=== PATIENT | female | born 1935 | race Caucasian/White ===

== ENCOUNTER → 2023-06-05 09:54 | Outpatient (REF) | payer OTHER, SELFPAY | LOC: DHCBC HW 09:54 | PROVIDERS: ATTENDING PHYSICIAN Internal Medicine Cardiovascular Disease; FAMILY PHYSICIAN Family Medicine | DX: I34.0 Nonrheumatic mitral (valve) insufficiency (principal) | CPT/HCPCS: 93306 ==

== ENCOUNTER → 2023-06-13 08:26 | Outpatient (REF) | payer OTHER, SELFPAY | LOC: RAD 08:26 | PROVIDERS: ATTENDING PHYSICIAN Physician Assistant; FAMILY PHYSICIAN Family Medicine | DX: K21.00 Gastro-esophageal reflux disease with esophagitis, without bleeding (principal) | CPT/HCPCS: 74221 ==

== ENCOUNTER 2023-08-03 08:26 | Emergency (ER) | payer OTHER, SELFPAY ==
[2023-08-03 08:46] VITALS: BP 147/78
--- NOTE | 2023-08-03 10:09 | ED.GENMED ---
History of Present Illness
<Zenaida Fisher PA-C - Last Filed: 08/03/23 17:18>
General
Chief Complaint: Eye Problems
Source: patient
Exam Limitations: none
Time Seen by Provider: 08/03/23 09:51
Nursing documentation reviewed up to this point in time: agreed with
Travel History
Have you had any contact with someone who has COVID-19?: No
Do you have any symptoms of coronavirus? Fever > 100 degrees, chills, cough, shortness of breath, sore throat, loss of taste or smell, muscle aches, or headache?: Yes
Symptoms:: see triage note
History of Present Illness
History of Present Illness:
Patient is a 88 year old female with history hypertension, hyperlipidemia presenting for evaluation of left eye symptoms. Patient states that she was diagnosed with periorbital cellulitis 07/20/23 and completed a 7-day course of Augmentin, along
with eyedrops. She was seen by her eye doctor, Dr. Garcia on 07/23/23 who told her that symptoms seem to be improved but she should return to the emergency department if any symptoms recurred. She states that last she started to have a
sore throat and pressure in her left ear. She was seen at an urgent care where she had a negative strep test. Sore throat and left ear pain has persisted. Last night�she states that her left eye became red again and she had significant purulent
drainage throughout the night. She came to the emergency department today for further evaluation.
Patient denies any associated fever, chills. She does endorse a mild frontal headache this morning which resolved after Tylenol. Patient denies any changes in her vision, double vision, or flashes/floaters. Patient denies any pain in left eye or
pain with eye movements.
Patient has no drug allergies.
Past History
<Zenaida Fishre PA-C - Last Filed: 08/03/23 17:18>
Past History
ED Past Medical History: COPD, GERD, HTN, Hypercholesterolemia and Other (Osteoarthritis, DJD)
ED Past Surgical History: Orthopedic
Social History
Tobacco: Former smoker (Quit 2001)
Alcohol: Former
Drug: None
Personal:
Living: with family
Employment: Retired
Family History
Family History: Other (Noncontributory)
Phy Exam
<Zenaida Fisher PA-C - Last Filed: 08/03/23 17:18>
Physical Exam
Physical Exam:
Vitals: Patient's vital signs are stable. Afebrile
General: Patient is well appearing, no acute distress. Nontoxic-appearing
Skin: Warm and dry, no rashes or lesions
Head: Normocephalic, atraumatic
Eyes: Injected conjunctiva of left eye sparing limbus, with purulent drainage. Very minimal lower lid erythema/edema. No proptosis. EOM intact. No pain with eye movements. No evidence of injected right conjunctiva. No erythema, edema of right
eye.
Ears: Left external auditory canal clear with visible TM and some fluid just posterior. Light reflex visualized. No erythema or bulging of TM. Right external auditory canal with some cerumen, no erythema or evidence of
Throat: Mild erythema of posterior pharynx without any notable tonsillar edema or exudates. Uvula midline. Protecting airway
Neck: Normal ROM, no cervical spine tenderness, no meningismus
Cardiac: Regular rate and rhythm, no murmurs.
Pulm: Normal respiratory effort, no wheezes, rales, rhonchi heard on exam.
Abdomen: No abdominal tenderness.
Extremities: No evidence of cyanosis or edema
Neuro: AAOx3. CN II-XII intact. No focal neurologic deficits.
Psychiatric: Normal affect.
Course
<Zenaida Fisher PA-C - Last Filed: 08/03/23 17:18>
Orders/Labs/Results
Orders:
Orders
08/03/23 10:54
Amoxicillin 875 mg/Clav 125 mg [Augmentin 875 mg/125 mg] 1 tablet PO NOW STA
Vital Signs
Initial and Last Documented VS:
Initial Vital Signs
Temp Pulse Resp BP Pulse Ox
98.3 F 75 16 147/78 96
08/03/23 08:46 08/03/23 08:46 08/03/23 08:46 08/03/23 08:46 08/03/23 08:46
Last Documented Vital Signs
Temp Pulse Resp BP Pulse Ox
98.3 F 75 16 147/78 96
08/03/23 08:46 08/03/23 08:46 08/03/23 08:46 08/03/23 08:46 08/03/23 08:46
Madanlt;Jaime Keller DO - Last Filed: 08/03/23 11:01>
Orders/Labs/Results
Orders:
Orders
08/03/23 10:54
Amoxicillin 875 mg/Clav 125 mg [Augmentin 875 mg/125 mg] 1 tablet PO NOW STA
Vital Signs
Initial and Last Documented VS:
Initial Vital Signs
Temp Pulse Resp BP Pulse Ox
98.3 F 75 16 147/78 96
08/03/23 08:46 08/03/23 08:46 08/03/23 08:46 08/03/23 08:46 08/03/23 08:46
Last Documented Vital Signs
Temp Pulse Resp BP Pulse Ox
98.3 F 75 16 147/78 96
08/03/23 08:46 08/03/23 08:46 08/03/23 08:46 08/03/23 08:46 08/03/23 08:46
<Zenaida Fisher PA-C - Last Filed: 08/03/23 17:18>
MDM/Problems Addressed
Differential Diagnosis Includes:
Not limited to: Bacterial conjunctivitis, viral conjunctivitis, allergic activated preseptal cellulitis, orbital cellulitis, sinusitis,
MDM/Problems Addressed:
Patient is a 88-year-old female presenting with recurrent left eye redness and drainage in setting of recently treated conjunctivitis and preseptal cellulitis. Patient completed 7-day course of Augmentin 500mg about 1 week ago. Symptoms resolved
initially. Patient had onset of sore throat, left ear fullness approximately 4 days ago with acute onset left eye redness and drainage last night. Instructed to come to the emergency department for further evaluation. Vital stable. Exam as
above. No evidence of bacterial pharyngitis or ear infection on exam. Left eye is injected with purulent drainage and very mild lower lid erythema/edema. No proptosis or pain with eye movements. EOMs intact. Right eye clear. No evidence of
orbital cellulitis today. No indication for CT imaging at this time. Patient is well-appearing, nontoxic.
This appears to be a bacterial conjunctivitis of left eye with possible mild developing preseptal cellulitis. Given symptoms did resolve with last course of antibiotics�do not feel there is a need to add for MRSA coverage at this time.. Will treat
with Augmentin 875 for 10 days and antibiotic eyedrops. Patient will follow-up with Optho later this week. Return precautions discussed at length. She is aware to return if any worsening or no improvement within the next 24 to 48 hours
Chronic conditions affecting care:
N/A
Acute Exacerbation and/or Progression of Chronic Illness:
N/A
<Zenaida Fisher PA-C - Last Filed: 08/03/23 17:18>
*Pulse Oximetry
Patient hypoxic: no
*EKG
Interpreted by ED Provider?: NA
*Dietary Director Interpretation
Rate: Dietary Director- N/A
*Critical Care Note
Total Time (30-74mins, 75-104mins- exclusive of procedures): Not Applicable
ED Attending Note
<Zenaida Fisher PA-C - Last Filed: 08/03/23 17:18>
-
Portions of this chart may have been created with voice recognition software.� Occasional wrong word or��sound alike� substitutions may have occurred due to the inherent limitations of voice recognition software.
<Jaime Keller, - Last Filed: 08/03/23 11:01>
ED Attending Note
Patient seen and examined by attending physician: Yes
I performed the substantive portion of visit, reviewed & personally made and approve the management plan that is documented in note by myself or ALLEN.: Yes
ED Attending Note:
I agree with Beatrice's note
88-year-old female presents complaining of left eye redness, discharge. Patient recently diagnosed with periorbital cellulitis and treated with Augmentin eyedrops. She has followed up with ophthalmology. Her symptoms improved with Augmentin and
drops. She completed the antibiotics about a week ago. However her symptoms have returned. No fever or chills. No pain with eye movement.
Vital signs normal
Left eye has moderate injection of the sclera and conjunctiva, minimal erythema of the lids. No significant periorbital swelling or erythema.
Reinitiate drops and oral antibiotics, Optho follow-up
Discharge Plan
Departure
Patient Disposition: Home (Routine Discharge)
Date of Disposition: 08/03/23
Time of Disposition: 10:58
Patient with high blood pressure during this ER visit?: Yes
Condition: Good
Covid-19: Not Applicable
Discharge Problem:
Preseptal cellulitis of left eye, Bacterial conjunctivitis of left eye
Instructions: Conjunctivitis ([facility]) ED, BLOOD PRESSURE, Periorbital Cellulitis
Prescriptions:
New
amoxicillin-pot clavulanate 875-125 mg tablet
1 tab PO BID 10 Days Qty: 20 0RF
polymyxin B sulf-trimethoprim 10,000 unit- 1 mg/mL drops
1 - 2 drp ophthalmic (eye) QID 7 Days Qty: 10 0RF
Rx Instructions:
in affected eye
No Action
omeprazole 20 MG capsule,delayed release(DR/EC)
20 mg PO DAILY
tramadol 50 MG tablet
50 mg PO HS
valacyclovir 500 MG tablet
500 mg PO DAILY
cetirizine 10 MG tablet
10 mg PO DAILY@1200
acetaminophen [Tylenol Arthritis Pain] 650 MG tablet extended release
650 mg PO BID
albuterol sulfate 1 PUFF HFA aerosol inhaler
2 puff inhalation R Q4HPRN PRN (Reason: sob)
fluticasone propionate 1 SPRAY spray,suspension
2 spray intranasal DAILYPRN PRN (Reason: alleriges)
rosuvastatin 10 MG tablet
10 mg PO HS
Spiriva with HandiHaler 18 MCG capsule, w/inhalation device
1 cap IH R DAILY
azithromycin 250 mg Tablet
0 mg PO .COMPLEX
Patient Comments:
patient started on 05/29/22
Rx Instructions:
For 250 mg dose pack: take 500 mg today (day 1), then 250 mg for 4 days (days 2-5)
tramadol 50 mg Tablet
50 mg PO DAILYPRN PRN (Reason: moderate pains)
Patient Comments:
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
hydrochlorothiazide 25 mg Tablet
25 mg PO DAILY
levothyroxine [Synthroid] 112 mcg Tablet
112 mcg PO DAILY
amoxicillin-pot clavulanate 875-125 mg tablet
1 tab PO [id number]
Patient Comments:
patient started on 05/29/22 #14
[place] Nasal Mist 0.65 % Aerosol,[place]
2 spray INTRANASAL DAILY
Visbiome 112.5 billion cell Capsule
1 cap PO DAILY
melatonin 10 mg Tablet
10 mg PO HS
prednisone 10 MG tablet
20 mg PO [id number]
Patient Comments:
patient started on 05/29/22 #10
hydrocortisone [Preparation H Hydrocortisone] 1 % cream
1 applic topical BID PRN (Reason: skin irritation) Qty: 28.4 0RF
Referrals:
Fe Segovia MD [Family Provider] - Follow up in 5-7 days
Britney Arboleda MD [Active] - Follow up in 2-3 days
Activity Restrictions/Additional Instructions:
- Return to the emergency department with any high fevers, worsening in swelling, redness of left eye, pain in left eye, changes in vision, severe headache, severe neck pain, difficulty swallowing/breathing, worsening in current symptoms, or any
other concerns
-As discussed�you should use the eyedrops in the affected eye 4 times a day for the next 7 days. If symptoms start appearing in right eye you should start using drops in right eye, as well. A prescription has been sent for an antibiotic to the
pharmacy. You should take this twice a day for the next 10 days. Continue to use Flonase, Zyrtec, humidifier as needed.
-As discussed�it is extremely important to monitor your symptoms closely and return with any worsening or failure to improve in the next 48 hours. You should follow-up with your eye doctor in the next 2 to 3 days to ensure symptoms are improving.
Interventions
Interventions:
*Risk Screen - Suicide Last Done: 08/03/23 10:18
*General Assessment Last Done: 08/03/23 08:46
*Neglect/Abuse Screening Last Done: 08/03/23 10:18
ED- Fall Risk Assessment Last Done: 08/03/23 10:18
*ED COVID-19 Vaccine History Last Done: 08/03/23 08:46
*Nursing Disposition Last Done: 08/03/23 11:19
Discharge Date and Time
Discharge Date/Time: 08/03/23 11:20
Print Language: MALTESE
[2023-08-03] MEDS: AUGMENTIN 875 MG/125 MG 1 TABLET PO (11:13)
--- NOTE | 2023-08-03 11:18 | EDRN ---
Reviewed discharge instructions with patient. Verbalized understanding. Ambulated with steady gait to the lobby.
== END 2023-08-03 11:20 | disposition home or self-care (01) ==
LOC: EMR 08:26
PROVIDERS: EMERGENCY PHYSICIAN Emergency Medicine; FAMILY PHYSICIAN Family Medicine
DX: L03.213 Periorbital cellulitis (principal); H10.89 Other conjunctivitis; I10 Essential (primary) hypertension; E78.00 Pure hypercholesterolemia, unspecified; J44.9 Chronic obstructive pulmonary disease, unspecified; K21.9 Gastro-esophageal reflux disease without esophagitis; M19.90 Unspecified osteoarthritis, unspecified site; Z87.891 Personal history of nicotine dependence
CPT/HCPCS: 99282

== ENCOUNTER 2023-10-19 08:18 | Inpatient (IN) | payer OTHER, SELFPAY ==
[2023-10-19] VITALS (26 sets, daily range): BP systolic 0–147; BP diastolic 41–80; BMI 29.7
[2023-10-19 05:16] LABS: % Basophils 0.3 % (0-2); % Eosinophils 0.6 % (0-6); % Immature Granulocytes 0.4 % (0-0.5); % Lymphocytes 7.9 % (20.5-51.1); % Monocytes 9.3 % (1.7-9.3); % Neutrophils 81.5 % (42.2-75.2); Absolute Basophils 0.1 10^3/uL (0-0.2); Absolute Eosinophils 0.1 10^3/uL (0-0.7); Absolute Immature Granulocytes 0.1 10^3/uL (0-0.05); Absolute Lymphocytes 1.2 10^3/uL (1.2-3.4); Absolute Monocytes 1.4 10^3/uL (0.1-0.6); Absolute Neutrophils 12.1 10^3/uL (1.4-6.5); Hematocrit 34.9 % (37.0-47.0); Hemoglobin 12.3 g/dL (12.0-16.0); Mean Corp Hgb Conc. 35.2 g/dL (33.0-37.0); Mean Corpuscular Hgb 32.5 pg (27.0-31.0); Mean Corpuscular Volume 92.3 fL (81.0-99.0); Nucleated Red Blood Cells % 0 %; Platelet Count 274 10^3/uL (130-400); Red Blood Cell Count 3.78 10^6/uL (4.20-5.40); Red Cell Dist. Width 13.5 % (11.5-14.5); White Blood Cell Count 14.9 10^3/uL (4.8-10.8)
[2023-10-19 05:33] LABS: ALT (SGPT) 19 U/L (0-35); AST (SGOT) 32 U/L (14-36); Albumin 4.1 g/dl (3.5-5.0); Alkaline Phosphatase 48 U/L (38-126); Blood Urea Nitrogen 18 mg/dl (7-17); Calcium 9.6 mg/dl (8.4-10.2); Carbon Dioxide 25 mmol/L (22-30); Chloride 97 mmol/L (98-107); Estimated Creatinine Clearance 51 ml/min; Glucose 118 mg/dl (70-99); Potassium 4.5 mmol/L (3.5-5.1); Sodium 128 mmol/L (135-145); Total Protein 6.5 g/dl (6.3-8.2); eGFR > 60.00
[2023-10-19 05:43] LABS: Troponin I < 0.012 ng/ml
[2023-10-19 06:05] LABS: Lipase 47 U/L (23-300)
--- NOTE | 2023-10-19 06:23 | ED.GENMED ---
History of Present Illness
General
Chief Complaint: Cardiac Symptoms
Source: patient
Exam Limitations: none
Time Seen by Provider: 10/19/23 04:54
History of Present Illness
History of Present Illness:
88-year-old female presents with epigastric pain that began about 2 days ago. States it radiates around to her sides and toward her back at times. Symptoms have been constant. She was given nitroglycerin and aspirin prior to arrival. She denies
shortness of breath. She has no history of coronary disease. No vomiting.
Past History
Past History
ED Past Medical History: COPD, GERD, HTN, Hypercholesterolemia and Other (Osteoarthritis, DJD)
ED Past Surgical History: Orthopedic
Social History
Tobacco: Former smoker (Quit 2001)
Alcohol: Former
Drug: None
Personal:
Living: with family
Employment: Retired
Family History
Family History: Other (Noncontributory)
Phy Exam
Physical Exam
Physical Exam:
CONSTITUTIONAL Patient alert and oriented to person, place and time. Well-appearing. Vital signs reviewed.
HEAD atraumatic, normocephalic.
EYES eyelids normal to inspection, Extraocular muscles intact, Conjunctiva normal, Sclera normal.
NECK normal range of motion, Trachea midline, no jugular venous distention.
RESPIRATORY CHEST No respiratory distress noted, Chest expansion equal, Bilateral breath sounds clear.
CARDIOVASCULAR regular rate and rhythm, Heart sounds normal.
ABDOMEN moderate epigastric tenderness, Bowel sounds normal. No distention.
BACK normal inspection, no obvious deformities
UPPER EXTREMITY range of motion normal, Motor strength normal, no cyanosis, no edema.
LOWER EXTREMITY range of motion normal, Motor strength normal, no cyanosis, no edema.
NEURO Speech normal, No focal motor deficits, [place] coma scale 15, Memory normal, Cranial Nerves intact to screening exam.
SKIN skin warm, dry, and normal in color.
PSYCHIATRIC patient oriented to person place and time, Normal affect.
Course
Orders/Labs/Results
Orders:
Orders
10/19/23 04:49
Electrocardiogram (*1) Urgent
Reason for Study: Chest Pain
Cardiac Monitoring- Treatment ONCE
EKG- Treatment ONCE
IV Insert/Care/Rem.- Treatment PRN
O2 Therapy [RESP] Urgent
Titrate/Wean O2 to maintain O2 sat greater than (%): 90
Special Instructions: Maintain sats >/=90%
Pulse Ox/spot Check [RESP] Urgent
Quantity: 1
Special Instructions: ON ROOM AIR
10/19/23 04:54
Complete Blood Count/With Diff Urgent
Comprehensive Metabolic Panel Urgent
Lipase Urgent
Comment: ADDED
Troponin I Urgent
10/19/23 05:15
CT Abd/Pel (IV only)-DH only Urgent
Comment:
Reason For Exam: epigastric pain to back
10/19/23 05:48
Add On- LAB Urgent
Tests Added?: lipase
Abnormal Lab Results
10/19/23
04:54
WBC 14.9 H 10^3/uL
(4.8-10.8)
RBC 3.78 L 10^6/uL
(4.20-5.40)
Hct 34.9 L %
(37.0-47.0)
MCH 32.5 H pg
(27.0-31.0)
Abs Immat Gran (auto) 0.1 H 10^3/uL
(0-0.05)
Absolute Neuts (auto) 12.1 H 10^3/uL
(1.4-6.5)
Absolute Monos (auto) 1.4 H 10^3/uL
(0.1-0.6)
Neutrophils % 81.5 H %
(42.2-75.2)
Lymphocytes % 7.9 L %
(20.5-51.1)
Sodium 128 L mmol/L
(135-145)
Chloride 97 L mmol/L
(98-107)
BUN 18 H mg/dl
(7-17)
Glucose 118 H mg/dl
(70-99)
10/19/23 04:54
10/19/23 04:54
Vital Signs
Initial and Last Documented VS:
Initial Vital Signs
Pulse Resp
68 18
10/19/23 04:48 10/19/23 04:48
Last Documented Vital Signs
Temp Pulse Resp BP Pulse Ox
98.5 F 65 18 124/53 95
10/19/23 04:50 10/19/23 04:50 10/19/23 04:50 10/19/23 04:50 10/19/23 04:51
MDM/Problems Addressed
MDM/Problems Addressed:
Epigastric abdominal pain, mild hyponatremia, leukocytosis
*Radiology
Radiology exam reviewed: preliminary read by ED provider (No free air, distended gallbladder)
*Pulse Oximetry
Patient hypoxic: no
*EKG
Interpreted by ED Provider?: Yes
Interpretation: abnormal
Rate: normal
Rhythm: sinus
[place]: normal axis
Interval: normal interval
Ischemia: non-specific ST changes
*Clinical Biochemical Geneticist Interpretation
Rate: normal
Interpretation: normal
Rhythm: sinus
*Critical Care Note
Total Time (30-74mins, 75-104mins- exclusive of procedures): Not Applicable
Data Reviewed
Source: patient
Prescriptions/Medications Considered But Not Given:
Consider nitroglycerin but abdomen is tender and do not suspect ACS
Patient Management
Discussion with other providers: Hospitalist and Lounge Car Attendant (Case discussed with surgery)
Escalation/DeEscalation of care consider admission/obs:
88-year-old female with 2 days of abdominal pain. Found to have leukocytosis. CT shows suspected acute cholecystitis with intact stone. IV antibiotics. Admit
ED Attending Note
-
Portions of this chart may have been created with voice recognition software.� Occasional wrong word or��sound alike� substitutions may have occurred due to the inherent limitations of voice recognition software.
Discharge Plan
Departure
Patient Disposition: Admit
Date of Disposition: 10/19/23
Time of Disposition: 06:52
Admit to: Med/Surg
Presentation/result/management discussed w/ accepting MD/DO: Hospitalist
Discharge Problem:
Acute cholecystitis
Prescriptions:
No Action
omeprazole 20 MG capsule,delayed release(DR/EC)
20 mg PO DAILY
tramadol 50 MG tablet
50 mg PO HS
valacyclovir 500 MG tablet
500 mg PO DAILY
cetirizine 10 MG tablet
10 mg PO DAILY@1200
acetaminophen [Tylenol Arthritis Pain] 650 MG tablet extended release
650 mg PO BID
albuterol sulfate 1 PUFF HFA aerosol inhaler
2 puff inhalation R Q4HPRN PRN (Reason: sob)
fluticasone propionate 1 SPRAY spray,suspension
2 spray intranasal DAILYPRN PRN (Reason: alleriges)
rosuvastatin 10 MG tablet
10 mg PO HS
Spiriva with HandiHaler 18 MCG capsule, w/inhalation device
1 cap IH R DAILY
azithromycin 250 mg Tablet
0 mg PO .COMPLEX
Patient Comments:
patient started on 05/29/22
Rx Instructions:
For 250 mg dose pack: take 500 mg today (day 1), then 250 mg for 4 days (days 2-5)
tramadol 50 mg Tablet
50 mg PO DAILYPRN PRN (Reason: moderate pains)
Patient Comments:
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
hydrochlorothiazide 25 mg Tablet
25 mg PO DAILY
levothyroxine [Synthroid] 112 mcg Tablet
112 mcg PO DAILY
amoxicillin-pot clavulanate 875-125 mg tablet
1 tab PO [id number]
Patient Comments:
patient started on 05/29/22 #14
[place] Nasal Mist 0.65 % Aerosol,[place]
2 spray INTRANASAL DAILY
Visbiome 112.5 billion cell Capsule
1 cap PO DAILY
melatonin 10 mg Tablet
10 mg PO HS
prednisone 10 MG tablet
20 mg PO [id number]
Patient Comments:
patient started on 05/29/22 #10
hydrocortisone [Preparation H Hydrocortisone] 1 % cream
1 applic topical BID PRN (Reason: skin irritation) Qty: 28.4 0RF
amoxicillin-pot clavulanate 875-125 mg tablet
1 tab PO BID 10 Days Qty: 20 0RF
polymyxin B sulf-trimethoprim 10,000 unit- 1 mg/mL drops
1 - 2 drp ophthalmic (eye) QID 7 Days Qty: 10 0RF
Rx Instructions:
in affected eye
Referrals:
Fe Segovia MD [Family Provider] -
Interventions
Interventions:
*Risk Screen - Suicide Last Done: 10/19/23 04:51
*General Assessment Last Done: 10/19/23 04:51
*Neglect/Abuse Screening Last Done: 10/19/23 04:51
ED- Fall Risk Assessment Last Done: 10/19/23 04:51
*ED COVID-19 Vaccine History Last Done: 10/19/23 04:51
ED- Pulmonary Assessment Last Done: 10/19/23 04:51
ED- Cardiac Assessment Last Done: 10/19/23 04:51
Discharge Date and Time
Print Language: PERSIAN
--- NOTE | 2023-10-19 07:38 | HPS.HSE ---
Family Physician
-
Family Physician: Fe Segovia
Chief Complaint
-
Epigastric pain/nausea
History of Present Illness
Patient is 88-year-old female with past medical history of essential hypertension, hyperlipidemia, GERD, hypothyroidism, history of diverticulitis, history of hemorrhoids, history of RSV, COPD, remote history of alcohol dependence, L4 compression
fracture, aortic valve insufficiency, history of left THR came to ER with new onset of epigastric pain that started approximately 2 days back. Pain is radiating to back at points waxing and waning in nature. No clear aggravating factors. Symptoms
persisted and patient presented to ER for further evaluation. Patient in the morning today also started having nausea but no episode of vomiting. No change in bowel habit except episode of constipation last week which was able to be resolved with
milk of mag. Patient denies of having frequent episodes of constipation. No associated fever.
Patient denies of having any ongoing cardiopulmonary or complaints.
Medical History
Past Medical History
Past Medical History: Reports Other
Additional Past Medical History:
essential hypertension, hyperlipidemia, GERD, hypothyroidism, history of diverticulitis, history of hemorrhoids, history of RSV, COPD, remote history of alcohol dependence, L4 compression fracture, aortic valve insufficiency, history of left THR
Past Surgical History: Reports Other
Social History
Tobacco: Non-smoker
Alcohol: Former (History of alcohol abuse, sober for many years)
Drug: None
Personal:
Living: With Family
Family History
Family History: Not pertinent
Allergies / Home Medications
Allergies reflects when Allergies were last updated in [facility].
Home Medications with original date entered in [facility]
Allergy/Medication List:
Allergies
Allergy/AdvReac Type Severity Reaction Status Date / Time
No Known Allergies Allergy Verified 08/03/23 08:50
Home Medications
omeprazole 20 mg capsule,delayed release 20 mg PO DAILY 07/11/09
valacyclovir 500 mg tablet 500 mg PO DAILY 10/03/18
acetaminophen 650 mg tablet,extended release (Tylenol Arthritis Pain) 650 mg PO BID 03/31/21
albuterol sulfate 90 mcg/actuation aerosol inhaler 2 puff inhalation R Q4HPRN PRN sob 03/31/21
fluticasone propionate 50 mcg/actuation nasal spray,suspension 2 spray intranasal DAILYPRN PRN alleriges 03/31/21
rosuvastatin 10 mg tablet 10 mg PO HS 03/31/21
tiotropium bromide 18 mcg capsule with inhalation device (Spiriva with HandiHaler) 1 cap IH R DAILY 03/31/21
Lactobac no.2-Bifidobac no.1-S. thermo 112.5 billion cell capsule (Visbiome) 1 cap PO DAILY 05/31/22
levothyroxine 112 mcg tablet (Synthroid) 112 mcg PO DAILY 05/31/22
melatonin 10 mg tablet 10 mg PO HS 05/31/22
tramadol 50 mg tablet 50 mg PO DAILYPRN PRN moderate pains 05/31/22
calcium carbonate 600 mg-vitamin D3 5 mcg (200 unit) tablet 1 tab PO DAILY 10/19/23
cetirizine 10 mg tablet (Zyrtec) 10 mg PO DAILY 10/19/23
famotidine 20 mg tablet (Pepcid) 20 mg PO DAILY 10/19/23
losartan 50 mg tablet 50 mg PO DAILY 10/19/23
multivitamin with minerals-folic acid 12 mcg chewable tablet (Centrum Adults) 1 tab PO DAILY 10/19/23
omega-3 fatty acids 1,000 mg PO DAILY 10/19/23
spironolactone 25 mg tablet 25 mg PO DAILY 10/19/23
vitamin B12 0.5 mg-folic acid 1 mg tablet 1 tab PO DAILY 10/19/23
Review of Systems
-
A 12 point ROS was completed and negative except as noted: Yes
Physical Exam
Vital Signs
Vital Signs
Temp Pulse Resp BP Pulse Ox
98.5 F 57 16 97/78 97
07/28/24 07:29 10/19/23 07:29 10/19/23 07:29 10/19/23 07:29 10/19/23 07:29
Physical Exam
General: No Apparent Distress
HEENT: No Oxygen
Respiratory: Clear
Cardiac: S1/S2 and Regular Rhythm; No Murmur or Rub
GI: Soft, Non Distended, Normal Bowel Sounds and Tender (Epigastric ); No Organomegaly
Rectal: Deferred by Provider
Musculoskeletal: No Cyanosis and No Edema
Skin: No Rash
Neuro: Awake, Alert, Oriented and Nonfocal/grossly intact
Laboratory Results
-
10/19/23 04:54
10/19/23 04:54
Laboratory Results
Total Bilirubin 1.0 mg/dl (0.2-1.3) 10/19/23 04:54
AST 32 U/L (14-36) 10/19/23 04:54
ALT 19 U/L (0-35) 10/19/23 04:54
Alkaline Phosphatase 48 U/L (38-126) 10/19/23 04:54
Troponin I < 0.012 ng/ml 10/19/23 04:54
Lipase 47 U/L (23-300) 10/19/23 04:54
Data Reviewed
-
Lab Data: Labs Reviewed by me, Discussed with Patient and Discussed with Family
Impression/Plan
-
CT a/p
Significant distended gallbladder with impacted 2 cm gallstone in the neck. Associated with circumferential gallbladder wall thickening and mild pericholecystic inflammation. Grade 1 anterolisthesis of L4/L5. Chronic L4 superior endplate
deformity.
1. Acute cholecystitis
Cholelithiasis with impacted gallstone in GB neck
Leukocytosis w/o fever
-Patient presented for epigastric pain with some nausea. No fever
-CT abdomen pelvis showing impacted 2 cm gallstone in the neck.
-Leukocytosis no fever. LFT normal.
-General surgery consulted by ER physician, await for further recommendation
-Maintain n.p.o./IV fluids/pain medication
-Cover with IV Unasyn for now
2. Acute hyponatremia
-Asymptomatic
-Presuming euvolemic with pain related ADH excess
-Urine sodium/osmolality pending
-Will need to maintained on IVF as NPO for sx
3. Essential HTN
-Reviewed blood pressure reading very soft, blood pressure improved
-Resume home medication from tomorrow
4. history of RSV
COPD
-No pulmonary complaints. Follows with Dr. Greenwood
-Maintain on as needed inhaler therapy
hyperlipidemia
GERD
hypothyroidism
history of diverticulitis
history of hemorrhoids
remote history of alcohol dependence
L4 compression fracture
aortic valve insufficiency
history of left THR
DVT PPX - scd
Full code
Total time spent : 77 mins
I personally saw and examined the patient.
I have reviewed all diagnostic interpretations and treatment plans as written.
Time includes patient management by me, time spent at the patients bedside, time to review lab and imaging results, discussing patient care, documentation in the medical record, and time spent with the family or caregiver and discussing care plan
with RN/Consultants.
--- NOTE | 2023-10-19 09:15 | CON.GS ---
Addendum entered and electronically signed by Shun Hood MD 10/19/23 12:48:
Correction, patient has received a dose of Unasyn preoperatively
Addendum entered and electronically signed by Shun Hood MD 10/19/23 12:47:
Patient seen and examined.
Patient is an 88 yo F with a pertinent PMH of GERD, HTN, HLD, COPD (no home O2), diverticulitis, and aortic valve insufficiency who presents with 2 days of epigastric abdominal pain. She denies any prior attacks. Associated nausea, but no
vomiting. She denies any jaundice, pale stools, or tea colored urine.
Gen: NAD
Abd: soft, obese, tender to palpation in RUQ, positive Ruvalcaba's sign, ND, non-peritoneal
Labs and imaging were reviewed
Patient is an 88yo F p/w acute cholecystitis
The natural history and pathophysiology of cholecystitis was discussed. Anatomy was reviewed. Given her persistent pain recommend cholecystectomy. Plan for a laparoscopic cholecystectomy with possible cholangiogram. The procedure itself, as well
as the risks, benefits, and alternatives was discussed. Specifically, we discussed the risks of bleeding, infection, injury to surrounding structures (bowel, bile ducts), CBD injury, need for open procedure. Typical postprocedural recovery was
discussed. All questions answered. Consent signed.
-- Laparoscopic cholecystectomy with possible cholangiogram
-- NPO, IVF
-- Antibiotics: Zosyn
-- Admit to hospitalist postoperative
Original Note:
Consultation
-
Date/Time Consultation Requested: 10/19/2023, 07:38
Date/Time Consultation Performed: , 10:00
Requesting Provider: José Luis Juares MD
Performing Provider: Shun Hood MD
Reason for Consultation: cholecystitis
Medical History
-
Chief Complaint: epigastric pain
History of Present Illness:
88-year-old female, with a history of diverticulitis COPD and aortic valve insufficiency, presents to the emergency department this morning due to epigastric pain. The patient states that started 2 days ago and was waxing and waning in nature.
This morning it was quite severe and she called 911 and was brought to the hospital via ambulance. She states that she had some nausea but no vomiting. The pain itself radiates to the back. She had not noticed any worsening pain after eating.
She has never had an attack like this before. She denies any pale stools, Coca-Cola colored urine, or jaundice. She has no change in bowel habits except for last week she had an episode of constipation.
In the ER the patient's vital signs are normal. She is afebrile. Her WBC is 14.9. CT of the abdomen and pelvis shows cholelithiasis with possible acute cholecystitis. No overt CT evidence for biliary dilation or choledocholithiasis. We have
been consulted for further surgical recommendation.
Past Medical History
Past Medical History: Other (essential hypertension, hyperlipidemia, GERD, hypothyroidism, history of diverticulitis, history of hemorrhoids, history of RSV, COPD, remote history of alcohol dependence, L4 compression fracture, aortic valve
insufficiency, history of left THR)
Past Surgical History: Other (hip and knee replacement)
Social History
Tobacco: Non-Smoker
Alcohol: Former
Drug: None
Personal:
Employment: Employed
Family History
Family History: Reviewed & Not Pertinent
Allergies / Home Medications
Allergy/AdvReac Type Severity Reaction Status Date / Time
No Known Allergies Allergy Verified 08/03/23 08:50
�Medication �Instructions �Recorded �Confirmed �Type
omeprazole 20 mg capsule,delayed 20 mg PO DAILY 07/11/09 10/19/23 History
release
valacyclovir 500 mg tablet 500 mg PO DAILY 10/03/18 10/19/23 History
acetaminophen 650 mg 650 mg PO BID 03/31/21 10/19/23 History
tablet,extended release (Tylenol
Arthritis Pain)
albuterol sulfate 90 mcg/actuation 2 puff inhalation R Q4HPRN PRN sob 03/31/21 10/19/23 History
aerosol inhaler
fluticasone propionate 50 2 spray intranasal DAILYPRN PRN 03/31/21 10/19/23 History
mcg/actuation nasal alleriges
spray,suspension
rosuvastatin 10 mg tablet 10 mg PO HS 03/31/21 10/19/23 History
tiotropium bromide 18 mcg capsule 1 cap IH R DAILY 03/31/21 10/19/23 History
with inhalation device (Spiriva
with HandiHaler)
Lactobac no.2-Bifidobac no.1-S. 1 cap PO DAILY 05/31/22 10/19/23 History
thermo 112.5 billion cell capsule
(Visbiome)
levothyroxine 112 mcg tablet 112 mcg PO DAILY 05/31/22 10/19/23 History
(Synthroid)
melatonin 10 mg tablet 10 mg PO HS 05/31/22 10/19/23 History
tramadol 50 mg tablet 50 mg PO DAILYPRN PRN moderate 05/31/22 10/19/23 History
pains
calcium carbonate 600 mg-vitamin 1 tab PO DAILY 10/19/23 10/19/23 History
D3 5 mcg (200 unit) tablet
cetirizine 10 mg tablet (Zyrtec) 10 mg PO DAILY 10/19/23 10/19/23 History
famotidine 20 mg tablet (Pepcid) 20 mg PO DAILY 10/19/23 10/19/23 History
losartan 50 mg tablet 50 mg PO DAILY 10/19/23 10/19/23 History
multivitamin with minerals-folic 1 tab PO DAILY 10/19/23 10/19/23 History
acid 12 mcg chewable tablet
(Centrum Adults)
omega-3 fatty acids 1,000 mg PO DAILY 10/19/23 10/19/23 History
spironolactone 25 mg tablet 25 mg PO DAILY 10/19/23 10/19/23 History
vitamin B12 0.5 mg-folic acid 1 mg 1 tab PO DAILY 10/19/23 10/19/23 History
tablet
Review of Systems
-
History Source: Patient
All other systems: Negative unless noted
Abdomen/GI: Abdominal Pain (epigastric) and Nausea
A 10 point review of systems was completed, and was negative except as per HPI.
Physical Exam
Vital Signs
Temp Pulse Resp BP Pulse Ox
97.5 F 60 20 137/63 97
10/19/23 08:34 10/19/23 08:34 10/19/23 08:34 10/19/23 08:34 10/19/23 08:34
10/18/23 10/19/23 10/20/23
06:59 06:59 06:59
Actual Weight 71.2 kg
Body Mass Index (BMI) 29.7
Lab Results
10/19/23 04:54
10/19/23 04:54
WBC 14.9 10^3/uL (4.8-10.8) H 10/19/23 04:54
Hgb 12.3 g/dL (12.0-16.0) 10/19/23 04:54
Hct 34.9 % (37.0-47.0) L 10/19/23 04:54
Plt Count 274 10^3/uL (130-400) 10/19/23 04:54
Abs Immat Gran (auto) 0.1 10^3/uL (0-0.05) H 10/19/23 04:54
Neutrophils % 81.5 % (42.2-75.2) H 10/19/23 04:54
Physical Exam
General: Well Developed, Well Nourished and No Apparent Distress
GI: Soft, Non Distended and Tender (epigastric)
Skin: Warm and Dry
Neuro: AO x 3
Data Reviewed
-
CT Scan: Image Personally Visualized and interpreted, Report Reviewed by me and Discussed with Patient
Labs: Labs Reviewed by me, Discussed with Physician and Discussed with Patient
Old Records: Reviewed
Assessment / Plan
-
Assessment: 88-year-old female with epigastric pain for 2 days found to have cholelithiasis with impacted gallstone in the gallbladder neck
Plan:
-OR today for cholecystectomy
-IV antibiotics per primary team
-Remain n.p.o.
-Pain control
-Discussed above with patient who is in agreement
[2023-10-19] MEDS: UNASYN IV ×4 (09:41→21:03)
--- NOTE | 2023-10-19 11:12 | EDRN ---
the OR called and this RN gave verbal report
[2023-10-19 11:24] LABS: APTT 34.1 Sec (23.4-35.0)
--- NOTE | 2023-10-19 12:44 | W.SUR.PREOP ---
Pre-Operative Surgical Note
-
I have examined this patient prior to the performance of the scheduled procedure.
The patient's condition is unchanged from the time of the current History and
Physical and the patient is able to undergo the scheduled procedure.
--- NOTE | 2023-10-19 15:53 | W.IMMPOSTOP ---
Addendum entered and electronically signed by Shun Hood MD 10/19/23 22:53:
[facility]#[id number]
Original Note:
Surgical Immed Post Op Note
-
Primary Surgeon: Sana
Assisting Surgeon: None
Pre-op Diagnosis: Acute cholecystitis
Post-op Diagnosis: Acute on chronic cholecystitis
Procedure Performed: Laparoscopic cholecystectomy with IOC
Anesthesia Type: General
Specimen / Cultures:
1. Gallbladder
Estimated Blood Loss: 7 cc
Complications: None
Operative Findings:
1. Severely thickened wall and distended GB, large impacted stone at neck
2. IOC with anatomy confirmed and no filling defects
3. Artery clipped, duct initially taken with stapler and tear through on posterior wall, sump ligated with endoloop
4. 10 Fr flat drain into operative field
[2023-10-19] MEDS: LR 1000 IV (16:00)
[2023-10-19] MEDS: TYLENOL PO (17:53)
[2023-10-19] MEDS: SPIRIVA RESPIMAT 2.5 MCG INH (18:05)
[2023-10-19] MEDS: VALTREX 500 MG PO (18:35)
--- NOTE | 2023-10-19 18:49 | PTCARENOTE ---
Pt arrived from PACU at aprox 1720. Pt S/P lap jojo. Right BAMBI drain site CDI with minimal drainage. 3 laps sites glued and MIKI. Vitals stable. LR at 75 hr hanging. Pt ordered dinner and walked to bathroom assisted with walker and was able to
void. Admission and assessment completed. Pt advised to ring for assistance and not to get OOB without help. Call roman within reach. at bedside.
[2023-10-19] MEDS: TYLENOL 650 MG PO (19:52)
[2023-10-19] MEDS: CRESTOR 10 MG PO (21:03)
[2023-10-19] MEDS: DILAUDID 0.5 MG IV (21:44)
[2023-10-19 21:58] LABS: Osmolality Urine 654 mOsm/kg (300-900)
[2023-10-19 22:10] LABS: Urine Sodium 42 mmol/L (30-90)
[2023-10-20] MEDS: TYLENOL PO (00:04)
[2023-10-20] MEDS: DILAUDID 0.5 MG IV ×2 (01:35→05:23)
--- NOTE | 2023-10-20 01:42 | PTCARENOTE ---
lap sites intact- pt ambulates to br and voids without difficulty- prn kumari meds x2- see mar- ax3- bp wnl afebrile
[2023-10-20] MEDS: LR 1000 IV (03:12)
[2023-10-20] MEDS: UNASYN IV ×2 (03:12→11:18)
[2023-10-20] MEDS: TYLENOL 650 MG PO ×3 (03:45→11:17)
[2023-10-20 03:46] VITALS: BP 137/72
[2023-10-20] MEDS: SYNTHROID 112 MCG PO (05:23)
[2023-10-20 06:17] LABS: Hematocrit 34.1 % (37.0-47.0); Hemoglobin 11.7 g/dL (12.0-16.0); Mean Corp Hgb Conc. 34.3 g/dL (33.0-37.0); Mean Corpuscular Hgb 32.1 pg (27.0-31.0); Mean Corpuscular Volume 93.7 fL (81.0-99.0); Mean Platelet Volume 9.8 fL (7.4-10.4); Platelet Count 211 10^3/uL (130-400); Red Blood Cell Count 3.64 10^6/uL (4.20-5.40); Red Cell Dist. Width 13.5 % (11.5-14.5); White Blood Cell Count 15.6 10^3/uL (4.8-10.8)
[2023-10-20 06:32] LABS: AST (SGOT) 68 U/L (14-36); Albumin 3.5 g/dl (3.5-5.0); Blood Urea Nitrogen 18 mg/dl (7-17); Calcium 8.5 mg/dl (8.4-10.2); Carbon Dioxide 25 mmol/L (22-30); Estimated Creatinine Clearance 51 ml/min; Glucose 107 mg/dl (70-99); Total Bilirubin 0.5 mg/dl (0.2-1.3); Total Protein 5.8 g/dl (6.3-8.2); eGFR > 60.00
[2023-10-20 06:40] LABS: ALT (SGPT) 65 U/L (0-35); Alkaline Phosphatase 53 U/L (38-126); Chloride 98 mmol/L (98-107); Sodium 129 mmol/L (135-145)
[2023-10-20 07:20] VITALS: BP 125/58
[2023-10-20] MEDS: SPIRIVA RESPIMAT 2.5 MCG 2 PUFF INH (07:28)
[2023-10-20] MEDS: VALTREX 500 MG PO (08:18)
[2023-10-20] MEDS: PROTONIX 40 MG PO (08:18)
--- NOTE | 2023-10-20 08:26 | W.PN.GS2 ---
Today's Communication / Plan
-
Dispo planning
Assessment / Plan
-
This is an 88-year-old female postoperative day 1 from a laparoscopic cholecystectomy with cholangiogram.
Continue BAMBI to bulb suction, begin drain teaching.
Anticipate discharge home later today with drain in and follow-up in [address] Hood.
Discharge instructions updated.
Time Spent
Total Time Spent with Patient (in minutes): 20
Subjective Data
-
Date of Service: October 20, 2023
Interval Events:
No acute events overnight. Slept well. Pain Controlled. Denies Nausea/Vomiting, +bowel function. Tolerating diet.
Objective Data
-
Intake and Output
10/19/23 10/20/23 10/21/23
06:59 06:59 06:59
Intake Total 1430 / 1430
Output Total 20 / 20
Balance 1410 / 1410
Intake:
Oral fluids 480 / 480
IV fluids (Total) 950 / 950
LR 50 / 50
IV piggybacks 0 / 0
Output:
Drain Output (Total) 20 / 20
Right Middle Abdomen Eugene- 20 /
Awad A
Other:
Number of approximated LARGE 3
amounts of urine
Vital Signs
Temp Pulse Resp BP Pulse Ox
97.7 F 58 16 125/58 96
10/20/23 07:20 10/20/23 07:33 10/20/23 07:33 10/20/23 07:20 10/20/23 07:33
Lab Results
10/20/23 04:39
10/20/23 04:39
Calcium 8.5 mg/dl (8.4-10.2) 10/20/23 04:39
Total Bilirubin 0.5 mg/dl (0.2-1.3) 10/20/23 04:39
AST 68 U/L (14-36) H 10/20/23 04:39
ALT 65 U/L (0-35) H 10/20/23 04:39
Alkaline Phosphatase 53 U/L (38-126) 10/20/23 04:39
Total Protein 5.8 g/dl (6.3-8.2) L 10/20/23 04:39
Albumin 3.5 g/dl (3.5-5.0) 10/20/23 04:39
Physical Exam
-
GENERAL/NEURO: Awake, Alert, no distress
CHEST: Unlabored breathing on RA
ABDOMEN: Soft, Non-Tender, Non-Distended, incisions clean dry and intact. BAMBI with serosanguineous drainage.
[2023-10-20 11:05] VITALS: BP 126/52
[2023-10-20] MEDS: ALDACTONE 25 MG PO (11:56)
[2023-10-20] MEDS: COZAAR 50 MG PO (11:56)
--- NOTE | 2023-10-20 12:07 | CM ---
product line manager reviewed patient's chart and patient's lives with her spouse in a one story home with one steps to enter, patient is independent with adl's and uses a cane outside to ambulate, per physician patient is for discharge to home possibly
today. Patient would benefit from homecare, options reviewed and patient has selected [facility].
Pharmacy; [facility]
PCP: Fe Segovia
Plan; Home when stable with [facility].
--- NOTE | 2023-10-20 12:42 | VNURNOTE ---
Home Health Liaison met with patient at bedside to discuss [facility] nurse visits, schedule, purpose. Patient is agreeable and understands that visits at home will be 1-3 x per week to assess and teach medical management, BAMBI drain care. [facility] brochure
provided with contact information. Patient is aware that [facility] will contact them for start of care in 1-2 days after discharge from . [facility] referral completed in [facility].
--- NOTE | 2023-10-20 12:50 | W.PN.HOSP.TC ---
Today's Communication/Plan
-
BAMBI drain teaching
OP GS f/u in 1 week
cbc/bmp in 3-4 days via pcp
Assessment / Plan
Assessment / Plan
1. Acute cholecystitis
Cholelithiasis with impacted gallstone in GB neck
Leukocytosis w/o fever
-Patient presented for epigastric pain with some nausea. No fever
-CT abdomen pelvis showing impacted 2 cm gallstone in the neck.
-Leukocytosis no fever. LFT normal. DC antibiotics on discharge.
-Status post laparoscopic cholecystectomy with IOC.
-Operative findings severely thickened wall and distended gallbladder, large impacted stone in the neck. I received anatomy confirmed no filling defects. Patient to go home with BAMBI drain with outpatient surgery follow-up. Being ordered.
2. Acute hyponatremia
-Asymptomatic
-Presuming euvolemic with pain related ADH excess
-Sodium slowly improving Repeat BMP later in the week. History of hyponatremia in the past as low as 126.
3. Essential HTN
-Reviewed blood pressure reading very soft, blood pressure improved
-Resume home medication
4. history of RSV
COPD
-No pulmonary complaints. Follows with Dr. Greenwood
-Maintain on as needed inhaler therapy
hyperlipidemia
GERD
hypothyroidism
history of diverticulitis
history of hemorrhoids
remote history of alcohol dependence
L4 compression fracture
aortic valve insufficiency
history of left THR
DVT PPX - scd
Full code
More than 30 minutes spent in discharge including
Final examination of the patient
Summarizing hospital stay
Instructions for continuing care to all relevant caregivers
Preparation of discharge records, prescriptions, and referral forms
Total time spent (in minutes): 52
Anticipated Discharge: Today
Subjective/Interval History
-
Date of Service: October 20, 2023
tolerating diet
in good spirits
Objective Data
-
Labs:
Laboratory Results
10/20/23
04:39
WBC 15.6 H
Hgb 11.7 L
Hct 34.1 L
Plt Count 211 D
Sodium 129 L
Potassium 4.0
Chloride 98
Carbon Dioxide 25
BUN 18 H
Creatinine 0.7
Glucose 107 H
Calcium 8.5
Total Bilirubin 0.5
AST 68 H
ALT 65 H
Alkaline Phosphatase 53
Vital Signs:
Vital Signs
Temp Pulse Resp BP Pulse Ox
97.8 F 55 12 126/52 97
10/20/23 11:05 10/20/23 11:05 10/20/23 11:05 10/20/23 11:05 10/20/23 11:05
I&O
10/19/23 10/20/23 10/21/23
06:59 06:59 06:59
Intake Total 1430 / 1430
Output Total 20 / 20
Balance 1410 / 1410
Physical Exam
-
General: Well Developed and No Apparent Distress
HEENT: Normocephalic, Atraumatic and Moist Mucous Membranes
Respiratory: Clear to Auscultation
Cardiac: Regular Rhythm and S1/S2; Negative Murmur, Rub or Gallop
GI: Soft, Nontender, Nondistended, Normal Bowel Sounds and Other (RUQ Bambi drain ); Negative Organomegaly
Rectal: Deferred by Provider
Musculoskeletal: No Clubbing, No Cyanosis and No Edema
Skin: Negative Rash
Neuro: Awake, No Motor Deficits and Nonfocal/Grossly Intact
Psych: Calm
--- NOTE | 2023-10-20 12:57 | W.DCSUMMARY ---
Discharge Summary
Discharge Data
Date of Admission: 10/19/23
Date of Discharge: 10/20/23
-
Pending Results: No
Hospital Course
88 female past medical history of RSV, hypertension, hyperlipidemia, GERD, hypothyroidism, diverticulitis, hemorrhoids, aortic valve insufficiency who is presenting for complaint of abdominal pain. Patient was found to have leukocytosis without
fever. Patient underwent CT abdomen pelvis which showed impacted 2 cm gallstones in the neck. General surgery evaluated patient and patient underwent laparoscopic cholecystectomy with intraoperative cholangiogram. Operative findings included of
severely thickened wall and distended gallbladder, large impacted stone in the neck. IOC with anatomy confirmed and no filling defects.Artery clipped, duct initially taken with stapler and tear through on posterior wall, sump ligated with endoloop.
10 Fr flat drain into operative field. BAMBI drain teaching was performed. Patient postop was tolerating diet. Patient mild hyponatremia which was improving. Recommended outpatient CBC and CMP to also assess for LFT improvement. General surgery
evaluated patient and recommended okay for discharge. Patient was tolerating low-fat diet and will be DC home with outpatient general surgery follow-up in 1 week. Also recommended follow-up with PCP for blood work and post op follow up.
Discharge Plan
-
Patient Disposition: Home (Routine Discharge)
Discharge Diagnosis/Procedures: Acute calculus cholecystitis status post laparoscopic cholecystectomy with intraoperative cholangiogram
Mild hyponatremia
Condition: Good
Diet: Regular and Low Fat
Additional Diets: If issues with bloating or diarrhea follow a low-fat diet
Activity: No strenuous activity
Additional Activity: No heavy lifting (>20 lbs) or strenuous activities for 2 weeks postoperatively
Driving Restrictions: No driving if too sore or taking narcotics
Bathing Restrictions: OK to Shower
Blood Work: CBC and CMP in 3 to 4 days with primary doctor
Other Services: [facility]
Wound Care: Keep incisions clean and dry. Glue will flake off in 2 to 3 weeks. Stitches will dissolve. Empty BAMBI drain daily and record outputs. Follow-up in 1 week to review removal of drain in the office.
Activity Restrictions/Additional Instructions:
Call for fevers (>100.5), nausea or vomiting, worsening abdominal pain, yellowing of the eyes or skin
Referrals:
Fe Segovia MD [Family Provider] - in less than 1 week
Shun Hood MD [Active] - in one week
Prescriptions:
Continued
omeprazole 20 MG capsule,delayed release(DR/EC)
20 mg PO DAILY
valacyclovir 500 MG tablet
500 mg PO DAILY
acetaminophen [Tylenol Arthritis Pain] 650 MG tablet extended release
650 mg PO BID
albuterol sulfate 1 PUFF HFA aerosol inhaler
2 puff inhalation R Q4HPRN PRN (Reason: sob)
fluticasone propionate 1 SPRAY spray,suspension
2 spray intranasal DAILYPRN PRN (Reason: alleriges)
rosuvastatin 10 MG tablet
10 mg PO HS
tiotropium bromide [Spiriva with HandiHaler] 18 MCG capsule, w/inhalation device
1 cap IH R DAILY
tramadol 50 mg Tablet
50 mg PO DAILYPRN PRN (Reason: moderate pains)
Patient Comments:
patient black pickler on 04/03/22 @90
levothyroxine [Synthroid] 112 mcg Tablet
112 mcg PO DAILY@06
Visbiome 112.5 billion cell Capsule
1 cap PO DAILY
melatonin 10 mg Tablet
10 mg PO HS
losartan 50 mg Tablet
50 mg PO DAILY
cetirizine [Zyrtec] 10 mg Tablet
10 mg PO DAILY
calcium carbonate-vitamin D3 600 mg-5 mcg (200 unit) Tablet
1 tab PO DAILY
spironolactone 25 mg Tablet
25 mg PO DAILY
famotidine [Pepcid] 20 mg Tablet
20 mg PO DAILY
omega-3 fatty acids Capsule
1,000 mg PO DAILY
vitamin Y33-hadin acid 0.5-1 mg Tablet
1 tab PO DAILY
Centrum Adults 12 mcg Tablet,Chewable
1 tab PO DAILY
Discharge Orders:
Discharge Patient (As Directed); Ordered 10/20/23
Ordered By: Daniel Fernandez
Discharge Date and Time
Print Language: GRENADIAN
== END 2023-10-20 14:13 | disposition home health service (06) | DRG 418 ==
LOC: 2 SOUTH 08:18
PROVIDERS: Physician Assistant; Radiology Diagnostic Radiology; ADMITTING PHYSICIAN Hospitalist; ATTENDING PHYSICIAN Hospitalist; EMERGENCY PHYSICIAN Emergency Medicine; FAMILY PHYSICIAN Family Medicine; OTHER PHYSICIAN Surgery
PROC: 0FT44ZZ Resection of Gallbladder, Percutaneous Endoscopic Approach (ICD-10-PCS; 2023-10-19)
PROC: BF131ZZ Fluoroscopy of Gallbladder and Bile Ducts using Low Osmolar Contrast (ICD-10-PCS; 2023-10-19)
DX: K80.13 Calculus of gallbladder with acute and chronic cholecystitis with obstruction (principal); E87.1 Hypo-osmolality and hyponatremia; M48.56XA Collapsed vertebra, not elsewhere classified, lumbar region, initial encounter for fracture; K82.1 Hydrops of gallbladder; E78.00 Pure hypercholesterolemia, unspecified; I10 Essential (primary) hypertension; J44.9 Chronic obstructive pulmonary disease, unspecified; K21.9 Gastro-esophageal reflux disease without esophagitis; M19.90 Unspecified osteoarthritis, unspecified site; E03.9 Hypothyroidism, unspecified; I35.1 Nonrheumatic aortic (valve) insufficiency; M43.16 Spondylolisthesis, lumbar region; F10.21 Alcohol dependence, in remission; Z96.642 Presence of left artificial hip joint; Z87.891 Personal history of nicotine dependence; Z87.19 Personal history of other diseases of the digestive system; Z79.51 Long term (current) use of inhaled steroids; Z79.890 Hormone replacement therapy
CPT/HCPCS: 88304; 74177; 74300; 76000; 80053; 83690; 83935; 84300; 84484; 85025; 85027; 85610; 85730; 86850; 86900; 86901; 93005; 94640; 99285; A4300; C1729; Q9967

== ENCOUNTER → 2023-11-26 10:12 | Outpatient (REF) | payer OTHER, SELFPAY | LOC: HWWDC 10:12 | PROVIDERS: ATTENDING PHYSICIAN Family Medicine | DX: Z12.31 Encounter for screening mammogram for malignant neoplasm of breast (principal) | CPT/HCPCS: 77063; 77067 ==

== ENCOUNTER 2024-02-16 06:40 | Inpatient (IN) | payer OTHER, SELFPAY ==
[2024-01-12 13:38] VITALS: BMI 33.1
[2024-01-12 14:14] LABS: Hemoglobin 12.8 g/dL (12.0-16.0); Mean Corp Hgb Conc. 32.8 g/dL (33.0-37.0); Mean Corpuscular Hgb 31.2 pg (27.0-31.0); Mean Corpuscular Volume 95.1 fL (81.0-99.0); Mean Platelet Volume 10.2 fL (7.4-10.4); Platelet Count 268 10^3/uL (130-400); Red Cell Dist. Width 14.5 % (11.5-14.5); White Blood Cell Count 7.5 10^3/uL (4.8-10.8)
[2024-01-12 14:47] LABS: ALT (SGPT) 24 U/L (0-35); AST (SGOT) 30 U/L (14-36); Albumin 4.8 g/dl (3.5-5.0); Alkaline Phosphatase 50 U/L (38-126); Blood Urea Nitrogen 21 mg/dl (7-17); Calcium 10.1 mg/dl (8.4-10.2); Carbon Dioxide 25 mmol/L (22-30); Chloride 100 mmol/L (98-107); Estimated Creatinine Clearance 39 ml/min; Glucose 103 mg/dl (70-99); Potassium 4.6 mmol/L (3.5-5.1); Sodium 138 mmol/L (135-145); Total Bilirubin 0.3 mg/dl (0.2-1.3); Total Protein 7.2 g/dl (6.3-8.2); eGFR > 60.00
[2024-01-13 09:02] LABS: Glycohemoglobin (HgbA1c) 5.8 % (4.0-5.6)
[2024-02-10 12:37] VITALS: BMI 33.1
[2024-02-16] VITALS (11 sets, daily range): BP systolic 110–151; BP diastolic 53–82; BMI 33.1
[2024-02-16] MEDS: TYLENOL 650 MG PO ×5 (07:11→23:48)
[2024-02-16] MEDS: CELEBREX 200 MG PO (07:11)
[2024-02-16] MEDS: BACTROBAN NASAL 1 GRAM NASAL (07:12)
--- NOTE | 2024-02-16 11:12 | W.PN.ORTHO ---
Today's Communication / Plan
-
D/c when medically stable.
Assessment
.
Distal Motor Intact: Yes
Dressing:
Scant incisional bleeding.
Assessment:
L knee OA s/p L TKA w/ Dr Arnold 02/16/24
- s/p R TKA 2009
DVT prophylaxis - ASA, b/l venous foot pumps
HTN - + parameters - monitor BP
Chronically abnormal EKG (NSST wave abnormality) and PACs, asymptomatic - monitor on tele
COPD w/ chronic MARIE - monitor O2
- IS
- Resume home inhalers
GERD and PUD - continue Pepcid
- Minimize NSAIDs
Diverticulitis complicated by C diff 09/2018 - continue probiotic
Peripheral neuropathy - consider Gabapentin or Lyrica
Dyslipidemia
Atherosclerosis of aorta
Mild-moderate MR
Mild AR
Venous varicosities, s/p remote stripping
Acute bronchiolitis due to respiratory syncytial virus 2021
L4 compression fracture on X ray 08/2020
Multilevel DDD
Spinal stenosis
Hypothyroidism
Skin CA, s/p multiple MOHS
Bladder prolapse
Rosacea
Osteoporosis
Prediabetes, A1c 5.8
Obesity, BMI 33.0
Remote tobacco abuse
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
Pt will benefit from prophylactic Cefadroxil upon d/c
Plan
.
Surgery / Date: L TKA w/ Dr Arnold 02/16/24
DVT Prophylaxis: Aspirin
Activity:
Out of bed.
PT/OT
Discharge Plan: Home w/ VN
Subjective
.
.:
Patient resting comfortably in PACU.
L knee pain minimal and currently well tolerated.
Denies any new significant complaints.
Vital Signs and Labs
.
Vital Signs and Labs:
Lab Results
01/12/24 12:25
01/12/24 12:25
Temp Pulse Resp BP Pulse Ox
97.6 F 78 16 147/82 95
02/16/24 07:10 02/16/24 07:10 02/16/24 07:10 02/16/24 07:10 02/16/24 07:10
Physical Exam
-
HEENT: No pallor, cyanosis, or jaundice. Throat clear.
NECK: Supple. No JVD.
RESPIRATORY: Lungs clear to auscultation.
CVS: S1, S2 normal. RRR.�
ABDOMEN: Soft, non-tender. No distension. Obese.
EXTREMITIES: No calf pain with palpation/dorsiflexion. Calves soft.
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 No focal deficits. rig manager grossly intact
[2024-02-16] MEDS: ROXICODONE 5 MG PO (11:30)
--- NOTE | 2024-02-16 12:10 | PTCARENOTE ---
pt received from PACU in a bed. pt oriented to room and procedures. left knee dressing with two small dots of drainage, will monitor. pt is in minimal pain and refuses pain meds at this time. pt is AAOx3 and mentating well.
[2024-02-16] MEDS: ALDACTONE PO (13:22)
[2024-02-16] MEDS: FLORASTOR PO (13:22)
[2024-02-16] MEDS: VITAMIN D3 (cholecalciferol) 50 MCG PO (13:27)
[2024-02-16] MEDS: ZYRTEC 10 MG PO (13:28)
[2024-02-16] MEDS: ALDACTONE 25 MG PO (13:33)
[2024-02-16] MEDS: ROXICODONE 10 MG PO ×2 (14:46→21:35)
[2024-02-16] MEDS: ANCEF 5 IV ×2 (16:41→23:48)
[2024-02-16] MEDS: ASPIRIN 325 MG PO (16:41)
[2024-02-16] MEDS: NON-FORMULARY ITEM 1 UNIT PO (21:26)
[2024-02-16] MEDS: SENOKOT 17.2 MG PO (21:26)
[2024-02-16] MEDS: BACTROBAN 2% OINTMENT 1 APPLIC NASAL (21:27)
[2024-02-16] MEDS: DECADRON 4 MG PO (21:27)
[2024-02-16] MEDS: COLACE 100 MG PO (21:27)
[2024-02-16] MEDS: MELATONIN 3 MG PO (21:27)
[2024-02-16] MEDS: CRESTOR 10 MG PO (21:27)
[2024-02-17] MEDS: ROXICODONE 10 MG PO ×2 (01:42→10:48)
[2024-02-17 03:23] VITALS: BP 114/45
[2024-02-17] MEDS: TYLENOL 650 MG PO ×2 (04:04→09:32)
[2024-02-17] MEDS: SYNTHROID 112 MCG PO (05:40)
[2024-02-17] MEDS: ROXICODONE 5 MG PO (05:42)
[2024-02-17] MEDS: NON-FORMULARY ITEM 1 UNIT INH (07:40)
[2024-02-17 07:53] VITALS: BP 124/48
[2024-02-17 07:54] VITALS: BP 101/55
[2024-02-17 08:45] LABS: Troponin I < 0.012 ng/ml
[2024-02-17] MEDS: FLORASTOR 250 MG PO (09:29)
[2024-02-17] MEDS: BACTROBAN 2% OINTMENT 1 APPLIC NASAL (09:29)
[2024-02-17] MEDS: SENOKOT 17.2 MG PO (09:30)
[2024-02-17] MEDS: ALDACTONE PO ×2 (09:30→09:31)
[2024-02-17] MEDS: ASPIRIN 325 MG PO (09:30)
[2024-02-17] MEDS: DECADRON 4 MG PO (09:30)
[2024-02-17] MEDS: COLACE 100 MG PO (09:32)
[2024-02-17] MEDS: PEPCID 20 MG PO (09:35)
[2024-02-17] MEDS: NEURONTIN 200 MG PO (09:35)
[2024-02-17] MEDS: LIDOCAINE 4% PATCH 2 PATCH TOPICAL (09:35)
[2024-02-17 10:22] VITALS: BP 125/57; BP 178/71; PULSE 62; O2SAT 95
--- NOTE | 2024-02-17 10:34 | W.PN.ORTHO ---
Today's Communication / Plan
-
Await PT recs. Pt did well w/ OT.
D/c later today if remaining clinically stable.
Assessment
.
Distal Motor Intact: Yes
Dressing:
Small areas of old incisional bleeding.
Assessment:
L knee OA s/p L TKA w/ Dr Arnold 02/16/24
- s/p R TKA 2009
DVT prophylaxis - ASA, b/l venous foot pumps
HTN - + parameters - BPs overall stable
Chronically abnormal EKG (NSST wave abnormality) and PACs, asymptomatic - rhythm overall stable on tele
- EKG ordered overnight due to 'static changes' on tele reported by RN. Post-op EKG w/o significant changes. Troponin negative. No reports of CP or SOB
COPD w/ chronic MARIE - O2 stable on RA
- IS
- Resumed home inhalers
GERD and PUD - continue Pepcid (clarified w/ pt -> takes 20 mg BID not 10 mg BID)
- Minimize NSAIDs
Diverticulitis complicated by C diff 09/2018 - continue probiotic
Peripheral neuropathy - add Gabapentin to accommodate for post-surgical pain
Dyslipidemia
Atherosclerosis of aorta
Mild-moderate MR
Mild AR
Venous varicosities, s/p remote stripping
Acute bronchiolitis due to respiratory syncytial virus 2021
L4 compression fracture on X ray 08/2020
Multilevel DDD
Spinal stenosis
Hypothyroidism
Skin CA, s/p multiple MOHS
Bladder prolapse
Rosacea
Osteoporosis
Prediabetes, A1c 5.8
Obesity, BMI 33.0
Remote tobacco abuse
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
Pt will benefit from prophylactic Cefadroxil upon d/c
Plan
.
Surgery / Date: L TKA w/ Dr Arnold 02/16/24
DVT Prophylaxis: Aspirin
Activity:
Out of bed.
PT/OT
Discharge Plan: Home w/ VN
Subjective
.
.:
Patient examined resting in bed.
Acute on chronic L knee pain overnight which 'radiates' throughout LLE - medications adjusted.
Denies any other significant complaints.
Eager for potential d/c today.
Vital Signs and Labs
.
Vital Signs and Labs:
Lab Results
01/12/24 12:25
01/12/24 12:25
Temp Pulse Resp BP Pulse Ox
98.0 F 94 18 101/55 94
02/17/24 07:54 02/17/24 07:54 02/17/24 07:54 02/17/24 07:54 02/17/24 07:54
Non-invasive Hgb result: 10.0
Physical Exam
-
HEENT: No pallor, cyanosis, or jaundice. Throat clear.
NECK: Supple. No JVD.
RESPIRATORY: Lungs clear to auscultation.
CVS: S1, S2 normal. RRR.�
ABDOMEN: Soft, non-tender. No distension.
EXTREMITIES: Expected post-surgical L knee edema. Strength equal, no calf pain with palpation/dorsiflexion. Calves soft.
AERIAL HURRICANE HUNTER: AOx3. No focal deficits. reservations and ticketing agent grossly intact
--- NOTE | 2024-02-17 10:41 | W.DS.TRANS ---
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
-
Discharge Instructions:
Sleep Apnea Risk Low
Discharge Diagnosis/Procedures L knee OA s/p L TKA w/ Dr Arnold 02/16/24
Diet Regular
Activity As tolerated,With Walker
Driving Restrictions Not until seen by your Dr
Bathing Restrictions OK to Shower
Other Services PT,VN
Wound Care Dressing to be removed 1 week post-surgery.
Instructions:
Stand-Alone Forms: Total Hip/Knee Replacement D/C
Changes to Home Medications: Yes
Discharge Medications:
DC Medications w/original date entered in [employer]
albuterol sulfate 90 mcg/actuation aerosol inhaler 2 puff inhalation R Q4HPRN PRN sob 03/31/21
fluticasone propionate 50 mcg/actuation nasal spray,suspension 2 spray intranasal NOON Congestion 03/31/21
rosuvastatin 10 mg tablet 10 mg PO HS High Cholesterol 03/31/21
levothyroxine 112 mcg tablet (Synthroid) 112 mcg PO DAILY Thyroid 05/31/22
calcium 600 mg (as carbonate)-vitamin D3 5 mcg (200 unit) tablet 1 tab PO NOON Supplement 10/19/23
cetirizine 10 mg tablet (Zyrtec) 10 mg PO NOON Allergies 10/19/23
multivitamin with minerals-folic acid 12 mcg chewable tablet (Centrum Adults) 1 tab PO DAILY Supplement 10/19/23
cholecalciferol (vitamin D3) 50 mcg (2,000 unit) capsule (Vitamin D3) 50 mcg PO NOON Supplement 02/10/24
lactobacillus combination no.4 3 billion cell capsule (Probiotic) 3,000 mmu cells PO DAILY Supplement 02/10/24
mecobalamin (vitamin B12) 1,000 mcg chewable tablet (B12 Active) 1,000 mcg PO DAILY Supplement 02/10/24
mupirocin 2 % topical ointment 1 applic topical BID Infection 02/10/24
omega [id number] oil 1,000 mg (120 mg-180 mg) capsule (Fish Oil) 1 cap PO DAILY Supplement 02/10/24
umeclidinium 62.5 mcg/actuation blister powder for inhalation (Incruse Ellipta) 1 inh inhalation DAILY Lung/Breathing Issues 02/10/24
acetaminophen 650 mg tablet,extended release (Tylenol Arthritis Pain) 1,300 mg (2 x 650 mg) PO Q8H #60 tabs 02/16/24
aspirin 325 mg tablet 325 mg PO DAILY #30 tabs 02/16/24
cefadroxil 500 mg capsule 500 mg PO BID #14 caps 02/16/24
dexamethasone 4 mg tablet 4 mg PO Q12H Anti-inflammatory #6 tabs 02/16/24
docusate sodium 100 mg capsule 100 mg PO BID #30 caps 02/16/24
losartan 50 mg tablet 50 mg PO DAILY Blood Pressure #1 tab 02/16/24
melatonin 3 mg tablet 3 mg PO HS #0 tabs 02/16/24
ondansetron HCl 4 mg tablet 4 mg PO Q6H PRN nausea and vomiting #30 tabs 02/16/24
oxycodone 5 mg tablet 5 - 10 mg (1 - 2 x 5 mg) PO Q6H PRN moderate-severe pain #30 tabs 02/16/24
sennosides 8.6 mg tablet (Senna Laxative) 17.2 mg (2 x 8.6 mg) PO BID #30 tabs 02/16/24
spironolactone 25 mg tablet 25 mg PO DAILY Heart Failure #1 tab 02/16/24
famotidine 10 mg tablet (Pepcid AC) 20 mg (2 x 10 mg) PO 1300,2200 Gastrointestinal Issue #0 tabs 02/17/24
gabapentin 100 mg capsule 200 mg (2 x 100 mg) PO BID neuropathic pain #40 caps 02/17/24
lidocaine 4 % topical patch 2 patch topical DAILY #30 ea 02/17/24
Home Medication Changes
acetaminophen 650 mg tablet,extended release (Tylenol Arthritis Pain) 1,300 mg (2 x 650 mg) PO Q8H #60 tabs 02/16/24
aspirin 325 mg tablet 325 mg PO DAILY #30 tabs 02/16/24
cefadroxil 500 mg capsule 500 mg PO BID #14 caps 02/16/24
dexamethasone 4 mg tablet 4 mg PO Q12H Anti-inflammatory #6 tabs 02/16/24
docusate sodium 100 mg capsule 100 mg PO BID #30 caps 02/16/24
ondansetron HCl 4 mg tablet 4 mg PO Q6H PRN nausea and vomiting #30 tabs 02/16/24
oxycodone 5 mg tablet 5 - 10 mg (1 - 2 x 5 mg) PO Q6H PRN moderate-severe pain #30 tabs 02/16/24
sennosides 8.6 mg tablet (Senna Laxative) 17.2 mg (2 x 8.6 mg) PO BID #30 tabs 02/16/24
gabapentin 100 mg capsule 200 mg (2 x 100 mg) PO BID neuropathic pain #40 caps 02/17/24
lidocaine 4 % topical patch 2 patch topical DAILY #30 ea 02/17/24
Pending Results: No
--- NOTE | 2024-02-17 10:49 | CM ---
Met with pt at bedside
Pt reports she lives with her in a 1 story home; 1 step to enter
Reports independent at baseline, ambulates with cane, drives
DME - quad cane, rolling walker, rollator, raised toilet seat, toilet rails, shower rails
SNF - denies past hx
HH - [facility] in past
Has ride home at discharge
PCP - [facility]
Pharm - [facility]
Pt requesting VN - prefers [facility] for PT
TT sent to VN Liaison for home care needs
will be available to assist pt at home
Discussed IMM
Plan - anticipate home with [facility]
[2024-02-17 11:07] VITALS: BP 142/60
--- NOTE | 2024-02-17 11:49 | VNURNOTE ---
Home Health Liaison spoke with patient to discuss [facility] nurse/therapy, visits, schedule and homebound status. Patient is agreeable and understands that visits at home will be 2-3 x per week to assess and teach medical management. Patient is aware
that [facility] will contact them for start of care in 1-2 days after discharge from .
[facility] referral completed in [facility].
[2024-02-17 12:00] VITALS: BP 142/60; PULSE 63; O2SAT 98
[2024-02-17] MEDS: ZYRTEC PO (12:27)
[2024-02-17] MEDS: TYLENOL PO (12:27)
[2024-02-17] MEDS: VITAMIN D3 (cholecalciferol) PO (12:27)
== END 2024-02-17 13:07 | disposition home health service (06) | DRG 470 ==
LOC: 2 SOUTH 06:40
PROVIDERS: Physician Assistant; ADMITTING PHYSICIAN Specialist; FAMILY PHYSICIAN Family Medicine; REFERRING PHYSICIAN Internal Medicine Cardiovascular Disease
PROC: 0SRD0J9 Replacement of Left Knee Joint with Synthetic Substitute, Cemented, Open Approach (ICD-10-PCS; 2024-02-16)
DX: M17.12 Unilateral primary osteoarthritis, left knee (principal); J44.0 Chronic obstructive pulmonary disease with (acute) lower respiratory infection; E87.1 Hypo-osmolality and hyponatremia; E78.00 Pure hypercholesterolemia, unspecified; E03.9 Hypothyroidism, unspecified; F10.21 Alcohol dependence, in remission; K21.9 Gastro-esophageal reflux disease without esophagitis; M81.0 Age-related osteoporosis without current pathological fracture; I10 Essential (primary) hypertension; I49.1 Atrial premature depolarization; Z87.11 Personal history of peptic ulcer disease; I34.0 Nonrheumatic mitral (valve) insufficiency; I35.1 Nonrheumatic aortic (valve) insufficiency; I70.0 Atherosclerosis of aorta; L71.9 Rosacea, unspecified; Z90.49 Acquired absence of other specified parts of digestive tract; Z89.521 Acquired absence of right knee; Z82.62 Family history of osteoporosis; E66.9 Obesity, unspecified; Z68.33 Body mass index [BMI] 33.0-33.9, adult; G62.9 Polyneuropathy, unspecified
CPT/HCPCS: 36415; 73560; 80053; 83036; 84484; 85027; 87070; 93005; 94640; 97110; 97116; 97162; 97166; 97530; 97535; C1713; C1776

== ENCOUNTER → 2024-07-20 08:56 | Outpatient (REF) | payer OTHER, SELFPAY | LOC: HWRCS 08:56 | PROVIDERS: ATTENDING PHYSICIAN Nurse Practitioner Gerontology; FAMILY PHYSICIAN Family Medicine | DX: I34.0 Nonrheumatic mitral (valve) insufficiency (principal) | CPT/HCPCS: 93306 ==

== ENCOUNTER → 2024-07-28 10:11 | Outpatient (REF) | payer OTHER, SELFPAY | LOC: HWRAD 10:11 | PROVIDERS: ATTENDING PHYSICIAN Nurse Practitioner Adult Health; FAMILY PHYSICIAN Family Medicine | DX: K59.01 Slow transit constipation (principal) | CPT/HCPCS: 74018 ==

== ENCOUNTER → 2025-01-05 08:45 | Outpatient (REF) | payer OTHER, SELFPAY | LOC: HWRAD 08:45 | PROVIDERS: ATTENDING PHYSICIAN Physical Medicine & Rehabilitation; FAMILY PHYSICIAN Family Medicine | DX: M54.16 Radiculopathy, lumbar region (principal) | CPT/HCPCS: 72131 ==